=== PATIENT | male | born 1995 | race Caucasian/White ===

== ENCOUNTER 2017-12-11 10:10 | Emergency (ER) | payer SELFPAY ==
[2017-12-11 10:22] VITALS: TEMP 98.1
[2017-12-11] MEDS ORDERED: LIDOCAINE 1% 100 MG in NS 100 ML IV ONE (10:31)
[2017-12-11] MEDS ORDERED: LORazepam 2 MG/ML INJ IVP ONE (10:32)
[2017-12-11] MEDS ORDERED: NS 1,000 ML IV ONE (10:46)
[2017-12-11] MEDS ORDERED: KETOROLAC 15 MG/1 ML SDV IVP ONE (10:46)
--- NOTE | 2017-12-11 10:46 | EDPHY ---
H & P Stated Complaint: Left flank pain similar to previous kidney stones. - Personal History Current Tetanus Diphtheria and Acellular Pertussis (TDAP): Yes Tetanus Vaccine Date: 2009 - Medical/Surgical History Hx Asthma: No Hx Chronic Respiratory Disease: No Hx Diabetes: No Hx Cardiac Disease: No Hx Renal Disease: Yes Hx Cirrhosis: No Hx Alcoholism: No Hx HIV/AIDS: No Hx Splenectomy or Spleen Trauma: No Other PMH: diagnosed with kidney stone 3 mos ago - Social History Smoking Status: Current every day smoker Time Seen by Provider: 12/11/17 10:31 HPI/ROS: CHIEF COMPLAINT: Left flank pain "I think I have a kidney stone" HISTORY OF PRESENT ILLNESS: 22-year-old male with prior history of nephrolithiasis arrives via private vehicle complaining of sudden onset left flank pain radiating to his left abdomen approximately 2 hr prior to arrival. Feels similar to prior nephrolithiasis episodes all of which have passed spontaneously. He has been seen emergency department previously for similar in 2016. He is currently experiencing nausea. No fever chills. REVIEW OF SYSTEMS: A ten point review of systems was performed and is negative with the exception of the items mentioned in the HPI PAST MEDICAL & SURGICAL HISTORY: Nephrolithiasis with spontaneous passage SOCIAL HISTORY: Daily tobacco smoker PHYSICAL EXAM (Prior to examination, patient consented to physical exam, hands were washed and my usual and customary physical exam procedures followed) 1) GENERAL: Well-developed, well-nourished, alert and oriented. Appears uncomfortable, retching, yelling 2) HEAD: Normocephalic, atraumatic 3) HEENT: Pupils equal, round, reactive to light bilaterally. Sclera anicteric. 4) NECK: Full range of motion, no meningeal signs. 5) LUNGS: Clear auscultation bilaterally, no wheezes, no rhonchi, no retractions. 6) HEART: Regular rate and rhythm, no murmur, no heave, no gallop. 7) ABDOMEN: No guarding, no rebound, no focal tenderness, negative McBurney's, negative Rivera's, negative Rovsing's, negative peritoneal sign, 8) MUSCULOSKELETAL: Moving all extremities, no focal areas of tenderness, no obvious trauma. No peripheral edema or discoloration. 9) BACK: No CVA tenderness, no midline vertebral tenderness, no fluctuance, no step-off, no obvious trauma, no visual or palpable abnormality. 10) SKIN: No rash, no petechiae. 11) Psychiatric: Patient is oriented X 3, there is no agitation. 12) : Normal male external genitalia bilateral testicles nontender with bilateral cremasteric reflex present and brisk. DIFFERENTIAL DIAGNOSIS: In no particular order including but not limited to nephrolithiasis, pyelonephritis, testicular torsion, diverticulitis (Lauryn,Annabelle Yesika) Constitutional: Initial Vital Signs Temperature (C) 36.7 C 12/11/17 10:19 Heart Rate 106 H 12/11/17 10:19 Respiratory Rate 24 H 12/11/17 10:19 Blood Pressure 116/76 12/11/17 10:19 O2 Sat (%) 96 12/11/17 10:19 O2 Delivery Mode Room Air Allergies/Adverse Reactions: No Known Allergies Allergy (Verified 08/27/16 23:29) Home Medications: Medication Instructions Recorded Hydrocodone/APAP 5/325 [[place] 1 - 2 each PO Q4-6PRN PRN #20 tab 01/20/16 5/325] Ondansetron Odt [Zofran Odt] 4 mg PO Q4PRN PRN #7 tab 12/11/17 Tamsulosin HCl [Flomax] 0.4 mg PO DAILY #7 cap 12/11/17 oxyCODONE/APAP 5/325 [Percocet 1 tab PO Q6 #7 tab 12/11/17 5/325] Medical Decision Making ED Course/Re-evaluation: 10:43 a.m.: Old medical records reviewed. He has a prior history of nephrolithiasis. He appears uncomfortable, he is yelling, crying, retching. Will hold on CT imaging at this time. Will obtain ultrasonography. I discussed with the patient as I would like to minimize ionizing radiation exposure. He verbalized understanding of this. 11:45 a.m.: Re-evaluation, sleeping appears significantly improved 12:20 p.m.: Re-evaluation, discussed his imaging results, re-examined the patient's abdomen is soft no guarding, testicular examination unremarkable and unchanged with no signs of testicular torsion. Discussed his imaging results. He has been informed that ureterolithiasis is not ruled out. He is noted to have hematuria with no evidence of hydronephrosis. I informed him that he more than likely has a ureteric stone which memory not have passed. At this time I do not think that ionizing radiation is currently indicated as he is currently asymptomatic. He has been given Flomax, will be given analgesia and follow up with Urology information. Usual and customary urologic precautions instructions provided. He feels comfortable being discharged. (Annabelle Combs) The patient was evaluated and managed by the physician workers compensation claims assistant. I have reviewed this chart and I agree with the findings and plan of care as documented , as indicated by my signature. I am the secondary supervising physician. ( Angelina Sams) - Data Points Laboratory Results: Laboratory Results 12/11/17 10:40 12/11/17 10:40 Medications Given: Discontinued Medications Lidocaine HCl 100 mg/ Sodium (Chloride) 110 mls @ 600 mls/hr IV EDNOW ONE Stop: 12/11/17 10:41 Last Admin: 12/11/17 11:18 Dose: 110 mls Sodium Chloride (Ns) 1,000 mls @ 3,000 mls/hr IV EDNOW ONE Stop: 12/11/17 11:05 Last Admin: 12/11/17 10:57 Dose: 1,000 mls Ketorolac Tromethamine (Toradol) 15 mg IVP EDNOW ONE Stop: 12/11/17 10:47 Last Admin: 12/11/17 10:57 Dose: 15 mg Lorazepam (Ativan Injection) 1 mg IVP EDNOW ONE Stop: 12/11/17 10:33 Last Admin: 12/11/17 10:57 Dose: 1 mg Departure - Departure Disposition: Home, Routine, Self-Care Clinical Impression: Ureteric stone Condition: Good Instructions: Ureteral Stones (ED) Additional Instructions: Return to the ER if you develop new or worsening symptoms or any other symptoms that concern you. Referrals: Kaylen Caldwell MD [Medical Doctor] - As per Instructions Prescriptions: Ondansetron Odt [Zofran Odt] 4 mg PO Q4PRN PRN #7 tab PRN Reason: Nausea oxyCODONE/APAP 5/325 [Percocet 5/325] 1 tab PO Q6 #7 tab Tamsulosin HCl [Flomax] 0.4 mg PO DAILY #7 cap
[2017-12-11 10:57] LABS: PLATELET COUNT 228 10^3/uL (150-400)
[2017-12-11 12:44] VITALS: BP 113/91; PULSE 99; RESP 16; O2SAT 92
== END 2017-12-11 12:44 | disposition home or self-care (01) ==
DX: N20.1 Calculus of ureter (principal); F17.200 Nicotine dependence, unspecified, uncomplicated
CPT/HCPCS: 96365; J1885; J2060

== ENCOUNTER 2018-04-12 04:44 | Emergency (ER) | payer SELFPAY ==
[2018-04-12] MEDS ORDERED: ACETAMINOPHEN 500 MG TAB PO ONE (04:59)
--- NOTE | 2018-04-12 05:05 | EDPHY ---
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 No LOC. However he presents emergency room stating that light is bothering him feeling nauseous and having headache. He denies any focal weakness, denies focal numbness or tingling. Denies neck pain chest pain or shortness of breath. He is concerned he may have another concussion or head injury. Past Medical History: History of head injuries and concussions Past Surgical History: No recent surgical history Social History: Denies drugs or tobacco. Was drinking tonight. Family History: Noncontributory. ROS REVIEW OF SYSTEMS: A comprehensive 10 point review of systems is otherwise negative aside from elements mentioned in the history of present illness. Exam Constitutional appears well nontoxic triage nursing summary reviewed, vital signs reviewed, awake/alert. Eyes normal conjunctivae and sclera, EOMI, PERRLA. HENT head/neck: Atraumatic no significant trauma visualized on the head and neck exam. No midline cervical spine pain or step-offs, moist mucus membranes, no epistaxis, neck supple/ no meningismus, no raccoon eyes. Respiratory clear to auscultation bilaterally, normal breath sounds, no respiratory distress, no wheezing. Cardiovascular rate normal, regular rhythm, no murmur, no edema, distal pulses normal. Gastrointestinal soft, non-tender, no rebound, no guarding, normal bowel sounds, no distension, no pulsatile mass. Genitourinary no CVA tenderness. Musculoskeletal no midline vertebral tenderness, full range of motion, no calf swelling, no tenderness of extremities, no meningismus, good pulses, neurovascularly intact. Skin pink, warm, & dry, no rash, skin atraumatic. Neurologic awake, alert and oriented x 3, AAOx3, moves all 4 extremities equally, motor intact, sensory intact, CN II-XII intact, normal cerebellar, normal vision, normal speech. Psychiatric normal mood/affect. Heme/Lymph/Immune no lymphadenopathy. Differential Diagnosis: Includes but is not limited to in a particular order intracranial bleed, skull fracture, subdural, epidural, alcohol intoxication, closed head injury, concussion Medical Decision Making: Plan for this patient will give a g of Tylenol for pain control, CT scan head without contrast reason for CT scan is head strike against the ground in the setting of acute alcohol intoxication and a headache. Re-evaluation: CT scan head without contrast: Negative for acute traumatic injury no bleed or skull fracture. Called to me by Dr. Montes. Re-evaluated patient 5:43 a.m. He is resting comfortably not vomiting feels better after Tylenol. CT scan head is unremarkable for acute traumatic injury. Discussed return precautions with him additionally discussed concussion versus head injury. Understands follow-up with his primary care doctor reverse concussion specialist. Return if worsening symptoms. Source: Patient - Personal History Current Tetanus/Diphtheria Vaccine: Yes Current Tetanus Diphtheria and Acellular Pertussis (TDAP): Yes Tetanus Vaccine Date: 2009 - Medical/Surgical History Hx Asthma: No Hx Chronic Respiratory Disease: No Hx Diabetes: No Hx Cardiac Disease: No Hx Renal Disease: Yes Hx Cirrhosis: No Hx Alcoholism: No Hx HIV/AIDS: No Hx Splenectomy or Spleen Trauma: No Other PMH: diagnosed with kidney stone 3 mos ago, closed head injury, multiple concussions - Social History Smoking Status: Current every day smoker Constitutional: Initial Vital Signs Temperature (C) 36.7 C 04/12/18 04:47 Heart Rate 105 H 04/12/18 04:47 Respiratory Rate 16 04/12/18 04:47 Blood Pressure 142/75 H 04/12/18 04:47 O2 Sat (%) 97 04/12/18 04:47 O2 Delivery Mode Room Air Allergies/Adverse Reactions: No Known Allergies Allergy (Verified 08/27/16 23:29) Home Medications: Medication Instructions Recorded NK [No Known Home Meds] 04/12/18 Medical Decision Making - Data Points Medications Given: Discontinued Medications Acetaminophen (Tylenol) 1,000 mg PO EDNOW ONE Stop: 04/12/18 05:00 Last Admin: 04/12/18 05:28 Dose: 1,000 mg Departure - Departure Disposition: Home, Routine, Self-Care Clinical Impression: Head injury Qualifiers: Encounter type: initial encounter Qualified Code(s): S09.90XA - Unspecified injury of head, initial encounter Concussion Qualifiers: Encounter type: initial encounter Loss of consciousness presence/duration: without LOC Qualified Code(s): S06.0X0A - Concussion without loss of consciousness, initial encounter Condition: Good Instructions: Concussion (ED), Head Injury (ED) Additional Instructions: 1. Take it easy the next 24-48 hours 2. Rest. 3. No vigorous activity 4. Stay well-hydrated 5. Minimize bright lights and loud noises 6. Follow up with her primary care doctor or concussion specialist Referrals: NONE *PRIMARY CARE P,. [Primary Care Provider] - As per Instructions Keila Rowland MD [Medical Doctor] - As per Instructions
[2018-04-12 05:48] VITALS: BP 133/74
== END 2018-04-12 05:50 | disposition home or self-care (01) ==
DX: S06.0X0A Concussion without loss of consciousness, initial encounter (principal); F17.200 Nicotine dependence, unspecified, uncomplicated; W01.198A Fall on same level from slipping, tripping and stumbling with subsequent striking against other object, initial encounter; Y99.8 Other external cause status; Y93.89 Activity, other specified

== ENCOUNTER 2018-09-12 16:15 | Emergency (ER) | payer MEDICAID ==
[2018-09-12 16:23] VITALS: BP 134/59
--- NOTE | 2018-09-12 16:29 | EDPHY ---
H & P Smoking Status: Former smoker Time Seen by Provider: 09/12/18 16:27 HPI/ROS: CLINICAL IMPRESSION: Right thumb sprain ASSESSMENT/PLAN: 23-year-old male presents to the emergency department with a right thumb injury sustained when he hyperextended the thumb and forcefully abducted the thumb unintentionally yesterday while doing 3 fingertip pushups. Patient has reproducible pain to the ulnar aspect of the MCP joint with no obvious laxity to the joint although I am concerned he may have sustained a ulnar collateral ligament injury. He has no evidence of avulsion fracture to the MCP or proximal phalanx on x-rays. Distal neurovascular exam is intact. Strength 4/5 , negative Apryl test and normal wrist mobility. Patient was placed in a Velcro thumb spica splint, referred to Orthopedics, rice treatment discussed, warning signs return to ED sooner outlined in discharge. DIFFERENTIAL DX: Ulnar collateral ligament injury to the right thumb, fracture, other musculoskeletal strain ED PROCEDURES: Procedure: Splint placement. A Velcro thumb spica splint was applied to the right hand by operations technician, supervised by myself. After application of the splint I returned and re- examined the patient. The splint was adequately immobilizing the joint and distal to the splint the patient's circulation and sensation was intact. ED COURSE: CHIEF COMPLAINT: Right thumb pain HPI: 23-year-old otherwise healthy male presents to the emergency department with right thumb pain after he was doing 3 finger did pushups last night. He states his thumb gave out, sliding out words and he heard a large pop. He did have swelling. He now has significant pain with making a fist and moving the thumb. No prior orthopedic injury to this thumb. No obvious bony deformity. No reported numbness or loss of sensation. No wrist pain or difficulty with range of motion. 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 Neurological: No sensory loss or weakness. PHYSICAL EXAM: General Appearance: Alert, oriented, appropriate for age, cooperative, NAD, well hydrated, non-toxic appearing, VSS, no hypoxia. Neurological: Alert and oriented x 3, normal sensation and strength of extremities Skin: Warm, dry, no rashes, no nodules on palpation. Musculoskeletal: right thumb pain with abduction and hyper extension, and flexion against resistance. No obvious ulnar collateral ligament laxity although patient is tender on the ulnar aspect of the MCP joint of the right thumb Negative Apryl test. Strength 4/5. Distal NV exam intact. Tender along thenar eminence without obvious bruising or significant swelling MEDICAL DECISION MAKING: Patient was seen independently.Secondary supervising physician at time of evaluation was Dr. Rojas. Diagnosis: Right thumb pain, possible ulnar collateral ligament injury. New, requires workup Summary: See assessment and plan for summary of ED visit Independent visualization of images, tracing, or specimens yes. Patient Progress stable. (Angelito Mohamud) Constitutional: Initial Vital Signs Temperature (C) 36.7 C 09/12/18 16:18 Heart Rate 89 09/12/18 16:18 Respiratory Rate 16 09/12/18 16:18 Blood Pressure 134/59 H 09/12/18 16:18 O2 Sat (%) 95 09/12/18 16:18 O2 Delivery Mode Room Air Allergies/Adverse Reactions: No Known Allergies Allergy (Verified 09/12/18 16:23) Home Medications: Medication Instructions Recorded NK [No Known Home Meds] 04/12/18 MDM/Departure - MDM Imaging: I viewed and interpreted images myself - [facility] Imaging Results: Imaging Impressions Hand X-Ray 09/12/18 16:33 Impression: No acute osseous abnormality. - Depart Disposition: Home, Routine, Self-Care Clinical Impression: Sprain of hand, thumb, right Qualifiers: Encounter type: initial encounter Sprain of finger site: metacarpophalangeal joint Qualified Code(s): S63.641A - Sprain of metacarpophalangeal joint of right thumb, initial encounter Condition: Good Instructions: Skier's Thumb (ED) Additional Instructions: DISCHARGE INSTRUCTIONS FROM YOUR DOCTOR Thank you for visiting our emergency department today. Please keep in mind that discharge from the emergency department does not mean that there is nothing wrong - it simply means that we have not identified an emergency condition that requires further evaluation or treatment in the hospital. You should always plan to follow up with primary care for re-evaluation of your condition in the next 2-3 days. If you have been referred to a specialist, please call as soon as possible (today or tomorrow) to schedule your follow up appointment at the appropriate time. Your x-rays are reassuring with no evidence of avulsion fracture or dislocation. You may have suffered an ulnar collateral ligament injury which is commonly called ski years thumb. We gave you a thumb spica splint and was advised that you follow-up with Orthopedics. A referral was provided. Please use ibuprofen as needed for pain and avoid activities that exacerbate your pain. Return to the emergency department for severe pain, loss of sensation to your thumb or fingers, trouble moving the wrist or forearm, or any other concerns. People present with illnesses and injuries in different ways, and it is always possible that we have missed something. You may always return for re-evaluation if symptoms worsen or if they are not improving or if you develop new/different symptoms. Again, thank you for choosing our emergency department. We hope that you feel better. Stand Alone Forms: Work Excuse Referrals: Richard Teran MD [Medical Doctor] - 2-3 days, if not improved
== END 2018-09-12 17:00 | disposition home or self-care (01) ==
DX: S63.641A Sprain of metacarpophalangeal joint of right thumb, initial encounter (principal); X50.0XXA Overexertion from strenuous movement or load, initial encounter; Y93.B2 Activity, push-ups, pull-ups, sit-ups
CPT/HCPCS: L3807

== ENCOUNTER 2018-09-15 23:10 | Emergency (ER) | payer MEDICAID ==
[2018-09-15 23:16] VITALS: BP 126/71
--- NOTE | 2018-09-15 23:34 | EDPHY ---
H & P Stated Complaint: broke right arm cast Time Seen by Provider: 09/15/18 23:29 HPI/ROS: HPI: This is a 23-year-old male who presents with Chief Complaint: Broken cast Location: Right arm cast Quality: Broken Duration: This evening while at work Signs and Symptoms: No bleeding, no radiation, no numbness, no weakness, no tingling, no incontinence, no decreased range of motion, no swelling, no pain, no fever Timing: Acute Severity: Mild Context: Patient is right-hand dominant, presents with complaints of accidentally breaking his cast at the wrist crease while at work this evening. He was seen in this emergency room on 09/12/2018 and diagnosed with a right thumb UCL rupture. He has since followed up with Orthopedics and was placed in a thumb spica cast. He reports that he was advised to not lift more than 5 lb which he has been compliant with. While at work tonight he noted a week spot in the cast and then the cast broke apart at the wrist crease. Modifying Factors: None Comment: ROS: A comprehensive 10 system review of systems is otherwise negative aside from elements mentioned in the history of present illness. MEDICAL/SURGICAL/SOCIAL HISTORY: Medical history: kidney stones, closed head injury, multiple concussions Surgical history: Adenoidectomy Social history: Employed. Nonsmoker. CONSTITUTIONAL: Well-developed, well-nourished, young adult white male, awake and alert, no obvious distress HEENT: Atraumatic and normocephalic. NECK: supple EXTREMITIES: 2/2 pulses, strength 5/5, right arm shows thumb spica cast in place with pulling apart at the wrist crease into 2 separate pieces. Reduced DIP/PIP/MCP flexion/extension at the right thumb with good light touch sensation. no deformities, no clubbing, no cyanosis or edema. NEUROLOGICAL: no focal neuro deficits. GCS 15. Light touch sensation intact. SKIN: Warm and dry, no erythema. no rash. Good capillary refill. Source: Patient, Old records Exam Limitations: No limitations - Personal History Current Tetanus/Diphtheria Vaccine: Yes Current Tetanus Diphtheria and Acellular Pertussis (TDAP): Yes Tetanus Vaccine Date: 2013 - Medical/Surgical History Hx Asthma: No Hx Chronic Respiratory Disease: No Hx Diabetes: No Hx Cardiac Disease: No Hx Renal Disease: No Hx Cirrhosis: No Hx Alcoholism: No Hx HIV/AIDS: No Hx Splenectomy or Spleen Trauma: No Other PMH: kidney stones, closed head injury, multiple concussions, adenoidectomy - Social History Smoking Status: Never smoked Constitutional: Initial Vital Signs Temperature (C) 36.9 C 09/15/18 23:14 Heart Rate 72 09/15/18 23:14 Respiratory Rate 16 09/15/18 23:14 Blood Pressure 126/71 H 09/15/18 23:14 O2 Sat (%) 95 09/15/18 23:14 O2 Delivery Mode Room Air Allergies/Adverse Reactions: No Known Allergies Allergy (Verified 09/15/18 23:16) Home Medications: Medication Instructions Recorded NK [No Known Home Meds] 04/12/18 Medical Decision Making Procedures: Procedure: Splint placement. A right thumb spica Ortho Glass splint was applied the Emergency Room aviation electrical technician. After application of the splint I returned and re-examined the patient. The splint was adequately immobilizing the joint and distal to the splint the patient's circulation and sensation was intact. ED Course/Re-evaluation: Cast was removed and thumb spica as Ortho Glass splint applied Pain is adequately controlled. Patient already is being seen outpatient by Orthopedics and he will call on Monday for a new appointment to have splint removing cast placed No signs of neurovascular compromise/tenting of skin/compartment syndrome/ extremities and joints examined above and below area of concern and are neurovascularly intact. This patient was seen under the supervision of my secondary supervising physician. I evaluated care for this patient independently. Discussed this patient with Dr. Shaver who did not see the patient. Differential Diagnosis: Differential diagnosis includes but is not limited to cast malfunction. Departure - Departure Disposition: Home, Routine, Self-Care Clinical Impression: Cast removal, Problem with fiberglass cast Rupture of ulnar collateral ligament of right thumb Qualifiers: Encounter type: initial encounter Qualified Code(s): S63.641A - Sprain of metacarpophalangeal joint of right thumb, initial encounter Condition: Good Instructions: Tendon Rupture (ED), Tendon Repair (DC), Splint Care (ED) Additional Instructions: Keep the splint dry and in place until seen by Orthopedics. Take Tylenol 650 mg every 4 hours and/or Ibuprofen 600 mg every 8 hours with food as needed for pain. Follow up with Orthopedics in 2-3 days for cast placement. Referrals: PCP Not In,Dictionary [Medical Doctor] - As per Instructions (Orthopedics)
== END 2018-09-16 00:04 | disposition home or self-care (01) ==
PROC: 2W3EX1Z Immobilization of Right Hand using Splint (ICD-10-PCS; principal; 2018-09-15)
DX: S63.641D Sprain of metacarpophalangeal joint of right thumb, subsequent encounter (principal); X58.XXXD Exposure to other specified factors, subsequent encounter; Y92.89 Other specified places as the place of occurrence of the external cause; Y93.9 Activity, unspecified; Y99.0 Civilian activity done for income or pay

== ENCOUNTER 2018-10-29 15:56 | Emergency (ER) | payer MEDICAID ==
[2018-10-29 16:04] VITALS: BP 141/80
[2018-10-29] MEDS ORDERED: IBUPROFEN 200 MG TAB PO ONE (16:12)
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
== END 2018-10-29 17:00 | disposition home or self-care (01) ==
DX: M79.641 Pain in right hand (principal); Y04.0XXA Assault by unarmed brawl or fight, initial encounter; Y92.008 Other place in unspecified non-institutional (private) residence as the place of occurrence of the external cause